=== PATIENT | female | born 1955 | race Caucasian/White ===

== ENCOUNTER 2021-08-14 23:55 | Emergency (ER) | payer OTHER, SELFPAY ==
[2021-08-15] MEDS: Erythromycin Ophth Oint 3.5 GM TUBE (00:07)
[2021-08-15] MEDS: Balanced Salt Solution 15 ML BTL (00:08)
[2021-08-15] MEDS: Fluorescein STRIPS 100/BOX 1 MG (00:08)
[2021-08-15] MEDS: Tetracaine 0.5% 4 ML BTL (00:08)
[2021-08-15 00:09] VITALS: BP 146/75; PULSE 66; RESP 18; TEMP 36.4; O2SAT 99
--- NOTE | 2021-08-15 00:12 | W.ED.GENAD ---
Discharge Plan Disposition Patient Disposition: HOME Condition: Good Discharge Details Clinical Impression: Abrasion of left cornea ED Provider: Kevyn Sofia Discharge Instructions Instructions: Corneal Abrasion (ED) Additional Instructions: At this time you do have evidence of corneal abrasion on your left eye. Please do not wear your contacts until your symptoms have completely resolved. Please take the erythromycin ointment as needed for the soothing effect. Please also take the moxifloxacin drops as directed, 3 times a day, 2 drops to the affected eye each time. If you notice any worsening of your symptoms, or any new symptoms such as vomiting, diarrhea, fever, chills, shortness of breath, chest pain, numbness, weakness, or fainting , please return immediately to the emergency department for reevaluation. Please follow up with your primary care provider as soon as possible for reassessment and reevaluation. As always, it was a pleasure participating in your medical care today. Medical Decision Making 66-year-old female with a past medical history of chronic dry eyes who does wear contact lenses presents today for evaluation of left eye pain. Patient states that she regularly places lubrication in her eye to help with her chronic dry eyes, this evening it was itchy and scratching sensation, she went to sleep, and when she woke up she noticed notable stabbing pain in her left eye consistent with her previous corneal abrasions. She denies any trauma, or getting anything stuck in her eye. No other complaints at this time. No other allergies. Pain is made worse with light. Improved by nothing. She denies any history of glaucoma. Physical exam demonstrates central corneal ulcer, no evidence of foreign body. Eversion of the upper and lower lids show no abnormalities. She did contact her occupational health professional, and the occupational health professional did prescribe my moxifloxacin. Unfortunately pharmacy is not open until Monday. Patient had complete resolution of her pain with the tetracaine. Eyes are soft, symptoms inconsistent with acute angle-closure glaucoma. Vision intact. Pupil reactive. Will give erythromycin ointment for soothing component, and moxifloxacin drops for home use as this was prescribed by her occupational health professional for her. Although no evidence of infection is noted now I do feel that prophylaxis is indicated. I have extensively reviewed the treatment plan and discharge instructions with the patient. I have addressed all patient concerns at this time. The patient was made aware of what symptoms to monitor for that would warrant a return to the emergency department. Discussed the plan with the patient, they demonstrate verbal understanding and agreement with our assessment and plan at this time. The documentation in this chart was dictated using [employer] dictation software. Please excuse any dictation errors. HPI General Date/Time Provider Initiated Documentation: 08/15/21 00:00. HPI Narrative: 66-year-old female with a past medical history of chronic dry eyes who does wear contact lenses presents today for evaluation of left eye pain. Patient states that she regularly places lubrication in her eye to help with her chronic dry eyes, this evening it was itchy and scratching sensation, she went to sleep, and when she woke up she noticed notable stabbing pain in her left eye consistent with her previous corneal abrasions. She denies any trauma, or getting anything stuck in her eye. No other complaints at this time. No other allergies. Pain is made worse with light. Improved by nothing. She denies any history of glaucoma. Related Data Allergies Allergy/AdvReac Type Severity Reaction Status Date / Time No Known Allergies Allergy Unverified 08/15/21 00:04 General Stated Complaint: EyeProblem ULYSSES: 3 Review of Systems All systems reviewed & are unremarkable except as noted in HPI and below [facility] Social History Smoking/Tobacco Use Status: Never Smoking risk assessment performed?: Yes Alcohol Intake: never Substance use type: does not use Do you feel safe at home: Yes Do you feel safe in your relationship?: Yes Exam Narrative Exam Narrative: 1.Const: Well-nourished, Well-developed, appearing stated age 2.Eyes: PERRL, notable left conjunctival injection, and symmetrical lids. Left eye: EOMI, PERRL, Peripheral vision intact. No nystagmus. No clinical signs of septal/orbital cellulitis, no redness around the eye, no proptosis. No hyphema, no signs of trauma around the eye, no periorbital emphysema. No sluggishness of the pupil. No ophthalmoplegia. No afferent pupillary defect. Fluorescein exam is positive for corneal abrasion in the central aspect, consistent with a central corneal abrasion most likely related to a contact lens, negative Carlos sign. Visual acuity as documented in chart. Eversion of the upper and lower lids shows no evidence of foreign body. 3.ENT: Atraumatic external nose and ears. Moist MM. Neck: Symmetric, trachea midline, No thyromegaly. 4.CVS: +S1/S2, No murmurs or gallops. Peripheral pulses 2+ and equal in all extremities. Brisk capillary refill in all extremities. 5.RESP: Unlabored respiratory effort. Clear to auscultation bilaterally. No wheezes rales or rhonchi 9.Neuro: course developer II-XII grossly intact. Sensation grossly intact, no focal neurologic deficits. 10.Psych: (AAO) x3. Appropriate mood and affect Course Vital Signs Vital signs: Vital Signs Temperature 36.4 C L 08/15/21 00:09 Pulse 66 08/15/21 00:09 Respiratory Rate 18 08/15/21 00:09 Blood Pressure 146/75 H 08/15/21 00:09 Pulse Oximetry 99 08/15/21 00:09 Temperature 36.4 C L 08/15/21 00:09 Temperature Source Tympanic 08/15/21 00:09 Pulse 66 08/15/21 00:09 Respiratory Rate 18 08/15/21 00:09 Respiratory Effort Non-Labored 08/15/21 00:04 Blood Pressure 146/75 H 08/15/21 00:09 Pulse Oximetry 99 08/15/21 00:09 Oxygen Delivery Method Room Air 08/15/21 00:09 Oxygen Flow Rate 0 08/15/21 00:09 Pain Level 8 08/15/21 00:01
[2021-08-15] MEDS: Moxifloxacin 0.5% 3 ML BTL OS (00:24)
== END 2021-08-15 00:29 | disposition home or self-care (01) ==
LOC: ER 08-15 00:39
PROVIDERS: Emergency Provider Student in an Organized Health Care Education/Training Program
DX: S05.02XA Injury of conjunctiva and corneal abrasion without foreign body, left eye, initial encounter (principal); X58.XXXA Exposure to other specified factors, initial encounter
CPT/HCPCS: 99283; 99282